=== PATIENT | female | born 1980 | race Caucasian/White ===

== ENCOUNTER 2021-05-05 12:13 | Emergency (ER) | payer BC ==
[~2021-05-05] VITALS: Ht 167.6 cm; Wt 104.5 kg
[2021-05-05 12:36] VITALS: BP 136/83
[2021-05-05] MEDS ORDERED: ERYT1OIN6 OP (13:02)
--- NOTE | 2021-05-05 13:03 | PHYS DOC ---
Past History Past Surgical History: Tubal ligation General Adult EDM: Chief Complaint: EYE PROBLEMS HPI: HPI: 40-year-old female presents with left eye erythema and discharge. She woke up this morning and noticed she had a thin discharge and a very red left eye. It is mildly pruritic. Patient does not believe she got anything in it. [place] and her friend members do have animals. No known allergies. She has no other complaints this time. Review of Systems: Review of Systems: Constitutional: Denies fever or chills Eyes: Denies change in visual acuity. Red left eye. HENT: Denies nasal congestion or sore throat Respiratory: Denies cough or shortness of breath Cardiovascular: Denies chest pain or edema GI: Denies abdominal pain, nausea, vomiting, bloody stools or diarrhea : Denies dysuria Musculoskeletal: Denies back pain or joint pain Integument: Denies rash Neurologic: Denies headache, focal weakness or sensory changes Endocrine: Denies polyuria or polydipsia Lymphatic: Denies swollen glands Psychiatric: Denies depression or anxiety Physical Exam: PE: Constitutional: Well developed, well nourished, obese, no acute distress, non- toxic appearance. [] HENT: Normocephalic, atraumatic, bilateral external ears normal, oropharynx moist, no oral exudates, nose normal. [] Eyes: PERRLA, EOMI, conjunctiva erythematous on left, normal right, no purulent discharge. [] Neck: Normal range of motion, no tenderness, supple, no stridor. [] Cardiovascular: Heart rate regular rhythm, no murmur [] Lungs & Thorax: Bilateral breath sounds clear to auscultation [] Abdomen: Bowel sounds normal, soft, no tenderness, no masses, no pulsatile masses. [] Skin: Warm, dry, no erythema, no rash. [] Back: No tenderness, no CVA tenderness. [] Extremities: No tenderness, no cyanosis, no clubbing, ROM intact, no edema. [] Neurologic: Alert and oriented X 3, normal motor function, normal sensory function, no focal deficits noted. [] Psychologic: Affect normal, judgement normal, mood normal. [] Current Patient Data: Vital Signs: Vital Signs Date Time Temp Pulse Resp B/P (MAP) Pulse Ox O2 Delivery O2 Flow Rate FiO2 05/05/21 12:36 96.9 88 18 136/83 (100) 100 Room Air EKG: EKG: [] Radiology/Procedures: Radiology/Procedures: [] Heart Score: C/O Chest Pain: N/A Risk Factors: Risk Factors: DM, Current or recent (<one month) smoker, HTN, HLP, family history of CAD, obesity. Risk Scores: Score 0 - 3: 2.5% MACE over next 6 weeks - Discharge Home Score 4 - 6: 20.3% MACE over next 6 weeks - Admit for Clinical Observation Score 7 - 10: 72.7% MACE over next 6 weeks - Early Invasive Strategies Course & Med Decision Making: Course & Med Decision Making Pertinent Labs and Imaging studies reviewed. (See chart for details) The patient appears to have conjunctivitis. This could be allergic, viral, or bacterial. The patient will be traveling back to [place] tomorrow so I will go and give her a prescription for erythromycin. She is stable for discharge at th is time. [] Tatiana Disclaimer: Tatiana Disclaimer: This electronic medical record was generated, in whole or in part, using a voice recognition dictation system. Departure Departure: Impression: Primary Impression: Conjunctivitis of left eye Disposition: HOME / SELF CARE / HOMELESS Condition: STABLE Referrals: PCP,NO (PCP) Patient Instructions: Conjunctivitis (Viral and Bacterial) Scripts Erythromycin Base (Erythromycin) 1 Gm Oint...g. 1 GM OP TID for bacterial conjunctivitis for 7 Days, #1 [facility] [place] Prov: DENISE BALDWIN DO 05/05/21 DENISE BALDWIN DO May 05, 2021 13:03
== END 2021-05-05 13:12 | disposition home or self-care (01) ==
LOC: ER 12:21
DX: H10.9 Unspecified conjunctivitis (principal)
CPT/HCPCS: 99283